=== PATIENT | male | born 1945 | race Hispanic/Latino ===

== ENCOUNTER → 2018-04-21 | Outpatient (CLI) | payer OTHER ==
[~2018-04-21] MED LIST: REGADENOSON 0.4 MG/5 ML PF SYG IVP SCH
== END | disposition home or self-care (01) ==
LOC: SHCH 08:46
PROVIDERS: ATTEND Internal Medicine Cardiovascular Disease
DX: R06.02 Shortness of breath (principal)
CPT/HCPCS: 78452; 93017; 96374; A9500 ×2; J2785

== ENCOUNTER → 2018-05-24 | Outpatient (CLI) | payer OTHER | END | disposition home or self-care (01) | LOC: EDUNIT# 04-28 15:00 → SHCH 13:27 | PROVIDERS: ATTEND Internal Medicine Cardiovascular Disease | DX: R06.02 Shortness of breath (principal) | CPT/HCPCS: 93306 ==

== ENCOUNTER 2019-06-08 07:09 | Day surgery (SDC) | payer OTHER ==
[2019-06-08 07:10] VITALS: BP 159/68
[2019-06-08] MEDS ORDERED: SODIUM CHLORIDE 0.9% 1000ML 1,000 ML IV ONE (07:46)
[2019-06-08] MEDS ORDERED: IOHEXOL-350 75 ML VIAL IV ONE ×2 (12:38→13:09)
[2019-06-08] MEDS ORDERED: IOHEXOL-350 50ML VIAL IV ONE (12:59)
[2019-06-08 13:35] VITALS: BP 155/65
== END 2019-06-08 14:55 | disposition home or self-care (01) ==
LOC: DAH 07:09 → RAH 07:09 → EDSTATUS 08:00 → RAH 14:55
PROVIDERS: ATTEND Internal Medicine Gastroenterology
DX: R92.8 Other abnormal and inconclusive findings on diagnostic imaging of breast (principal); D73.9 Disease of spleen, unspecified; M51.34 Other intervertebral disc degeneration, thoracic region; M47.814 Spondylosis without myelopathy or radiculopathy, thoracic region; M47.816 Spondylosis without myelopathy or radiculopathy, lumbar region
CPT/HCPCS: 74170; 82948; 96360; 96361; A4606; J7030; Q9967 ×3